=== PATIENT | male | born 1985 | race Asian ===

== ENCOUNTER 2017-02-24 03:03 | Emergency (ER) | payer OTHER ==
[~2017-02-24] VITALS: Ht 167.6 cm; Wt 65.8 kg
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
[2017-02-24] MEDS ORDERED: NKM (03:11)
[2017-02-24 03:15] VITALS: BP 106/55
[2017-02-24] MEDS ORDERED: Bacitracin Oint UD TOPIC ONE (03:15)
[2017-02-24] MEDS ORDERED: IBUPROFEN600 MG ORAL (03:58)
[2017-02-24] MEDS ORDERED: BACITRACIN15 GM TOPIC (03:58)
[2017-02-24 04:27] VITALS: BP 109/60
== END 2017-02-24 04:10 ==
LOC: EMR 03:30
DX: S62.304A Unspecified fracture of fourth metacarpal bone, right hand, initial encounter for closed fracture (principal); S60.419A Abrasion of unspecified finger, initial encounter; X58.XXXA Exposure to other specified factors, initial encounter; Y92.89 Other specified places as the place of occurrence of the external cause; F17.200 Nicotine dependence, unspecified, uncomplicated
CPT/HCPCS: 99284